=== PATIENT | male | born 1985 | race Caucasian/White ===

== ENCOUNTER 2017-10-31 16:28 | Emergency (ER) | payer OTHER, SELFPAY ==
[2017-10-31 16:28] VITALS: BMI 24.3
[2017-10-31 16:38] VITALS: BP 128/79; PULSE 62; RESP 18; TEMP 98.6; O2SAT 100
--- NOTE | 2017-10-31 17:57 | C.PDOC ---
History Of Present Illness 32 y/o male presents to the ED complaining of a left thigh abscess, gradually developing over the past 1.5 weeks. He states that initially the swelling was bigger, but is now smaller and draining. Denies fever or chills. Patient states he has a history of multiple abscesses in the past. Time Seen by Provider: 10/31/17 16:51 Chief Complaint (Nursing): Abnormal Skin Integrity History Per: Patient History/Exam Limitations: no limitations Onset/Duration Of Symptoms: Days Current Symptoms Are (Timing): Still Present Past Medical History Reviewed: Historical Data, Nursing Documentation, Vital Signs Vital Signs: Last Vital Signs Temp 98.6 F 10/31/17 16:37 Pulse 62 10/31/17 16:37 Resp 18 10/31/17 16:37 BP 128/79 10/31/17 16:37 Pulse Ox 100 10/31/17 18:10 Family History: States: Unknown Family Hx - Social History Hx Tobacco Use: No Hx Alcohol Use: Yes Hx Substance Use: No - Immunization History Hx Tetanus Toxoid Vaccination: No Hx Influenza Vaccination: No Hx Pneumococcal Vaccination: No Review Of Systems Except As Marked, All Systems Reviewed And Found Negative. Constitutional: Negative for: Fever, Chills Skin: Positive for: Other (abscess to thigh) Neurological: Negative for: Weakness, Numbness Physical Exam - Physical Exam Appears: Non-toxic, No Acute Distress Skin: Warm, Dry, Other (indurated abscess to left thigh, 1.5 cm in diameter, mildly erythematous, but not warm to touch) Head: Atraumatic, Normacephalic Eye(s): bilateral: Normal Inspection, PERRL, EOMI Nose: Normal Oral Mucosa: Moist Neck: Normal ROM, Supple Chest: Symmetrical Cardiovascular: Rhythm Regular Respiratory: No Accessory Muscle Use Extremity: Bilateral: Atraumatic, Normal Color And Temperature, Normal ROM Neurological/Psych: Oriented x3, Normal Speech, Normal Cranial Nerves, Normal Motor, Normal Sensation ED Course And Treatment O2 Sat by Pulse Oximetry: 100 (RA) Pulse Ox Interpretation: Normal Medical Decision Making Medical Decision Making: Initial Impression: Abscess to left thigh Counseled patient regarding diagnosis and explained that due to exam findings, I &D is not indicated at this time. Discussed wound case and advised patient to apply warm compresses. Patient is stable for d/c home. Provided with prescription for Motrin. Patient advised to return to the ER for any fever or worsening symptoms. Disposition Counseled Patient/Family Regarding: Diagnosis, Need For Followup - Disposition Referrals: [facility] [Outside] [facility] [Outside] Disposition: HOME/ ROUTINE Disposition Time: 17:00 Condition: GOOD Additional Instructions: SIMEON DAMON, thank you for letting us take care of you today. Your provider was David Levi DO and you were treated for LT LEG INFECTION. The emergency medical care you received today was directed at your acute symptoms. If you were prescribed any medication, please fill it and take as directed. It may take several days for your symptoms to resolve. Return to the Emergency Department if your symptoms worsen, do not improve, or if you have any other problems. Please contact your doctor or call one of the physicians/clinics you have been referred to that are listed on the Patient Visit Information form that is included in your discharge packet. Bring any paperwork you were given at discharge with you along with any medications you are taking to your follow up visit. Our treatment cannot replace ongoing medical care by a primary care provider outside of the emergency department. Thank you for allowing the [facility] team to be part of your care today. Apply warm compresses to the area several times a day. Follow up with your primary doctor or the clinic in 2-3 days for re-evaluation and further management. Prescriptions: Ibuprofen [Motrin] 600 mg PO Q6 PRN #20 tab PRN Reason: Pain, Moderate (4-7) Instructions: Skin Abscess Forms: [facility] (Urdu) - POA Present On Arrival: None - Clinical Impression Clinical Impression: Abscess - Scribe Statement The provider has reviewed the documentation as recorded by the Scribe (Alice Hill) Provider Attestation: All medical record entries made by the Scribe were at my direction and personally dictated by me. I have reviewed the chart and agree that the record accurately reflects my personal performance of the history, physical exam, medical decision making, and the department course for this patient. I have also personally directed, reviewed, and agree with the discharge instructions and disposition.
== END 2017-10-31 17:28 | disposition home or self-care (01) ==
LOC: C.ER 16:28
DX: L02.416 Cutaneous abscess of left lower limb (principal)

== ENCOUNTER 2018-01-06 06:43 | Emergency (ER) | payer SELFPAY ==
[2018-01-06 06:44] VITALS: BMI 24.3
[2018-01-06 07:03] VITALS: PULSE 68; O2SAT 98
--- NOTE | 2018-01-06 07:55 | C.PDOC ---
History Of Present Illness 32 yo male c/o wound to the right foot for 4 days. He notes he has had some itching to the toes for "a while" but recently he noticed some swelling to the sole prompting ED visit. Notes he has a history of similar episode 2 years ago with I&D. Denies trauma, fever, change in sensation. Time Seen by Provider: 01/06/18 07:03 Chief Complaint (Nursing): Lower Extremity Problem/Injury History Per: Patient History/Exam Limitations: no limitations Onset/Duration Of Symptoms: Days Current Symptoms Are (Timing): Still Present Past Medical History Vital Signs: Last Vital Signs Temp 98 F 01/06/18 08:31 Pulse 68 01/06/18 08:31 Resp 18 01/06/18 08:31 BP 126/73 01/06/18 08:31 Pulse Ox 98 01/06/18 08:58 Family History: States: Unknown Family Hx - Social History Hx Tobacco Use: No Hx Alcohol Use: Yes Hx Substance Use: No - Immunization History Hx Tetanus Toxoid Vaccination: No Hx Influenza Vaccination: No Hx Pneumococcal Vaccination: No Review Of Systems Except As Marked, All Systems Reviewed And Found Negative. Musculoskeletal: Positive for: Foot Pain Physical Exam - Physical Exam Appears: Well, Non-toxic, No Acute Distress Skin: Warm, Dry, Other ((+) Plantar Right foot: tenderness and mild swelling to the midfoot. (+) abrasion in between the toes (pt admits that he has been scratching it causes the wounds)) Head: Atraumatic, Normacephalic Eye(s): bilateral: Normal Inspection, EOMI Nose: Normal Oral Mucosa: Moist Neck: Normal, Normal ROM, Supple Chest: Symmetrical Respiratory: No Accessory Muscle Use Back: Normal Inspection Extremity: Normal ROM, No Calf Tenderness, Capillary Refill (< 2 sec) Pulses: Left Dorsalis Pedis: Normal, Right Dorsalis Pedis: Normal Neurological/Psych: Oriented x3, Normal Speech, Normal Motor, Normal Sensation ED Course And Treatment O2 Sat by Pulse Oximetry: 98 Progress Note: Tetanus Up to date- 2016. Pt was seen and evaluated by podiatry resident who instructs RX as prescribed and to follow up with the clinic. Pt verbalized understanding. Disposition - Disposition Referrals: [facility] [Outside] [facility] [Outside] Disposition: HOME/ ROUTINE Disposition Time: 08:22 Condition: STABLE Additional Instructions: Follow up with the podiatry clinic this week for wound check. Return to ER if symptoms persist or worsen. Prescriptions: Cephalexin [cephalexin] 500 mg PO TID #21 cap Clotrimazole 1% Cream [Lotrimin 1%] 1 oz TP BID 14 Days cre Instructions: Wound Care (DC) Forms: [facility] (Yi) Print Language: PUERTO RICAN - Clinical Impression Clinical Impression: Cellulitis of foot, Tinea pedis
[2018-01-06 08:32] VITALS: BP 126/73; RESP 18; TEMP 98
== END 2018-01-06 08:32 | disposition home or self-care (01) ==
LOC: C.ER 06:43
DX: B35.3 Tinea pedis (principal); L03.115 Cellulitis of right lower limb